=== PATIENT | female | born 1980 | race American Indian/Alaskan Native ===

== ENCOUNTER 2019-07-15 13:56 | Emergency (ER) | payer BC, OTHER ==
[2019-07-15] MEDS ORDERED: Albuterol/Ipratropium 3.0-0.5 MG/3 ML Neb Soln NEB ONE (14:14)
[2019-07-15] MEDS ORDERED: methylPREDNISolone Sodium Succinate 125 MG/2 ML SDV IVPUSH ONE (14:14)
[2019-07-15] MEDS ORDERED: Sodium Chloride 0.9% 10 ML Syringe FLUSH PRN (14:14)
[2019-07-15 14:46] LABS: ANION GAP 12.3; CHLORIDE,CL 104 mmol/L (101-111); SODIUM,NA 139 mmol/L (135-145)
[2019-07-15] MEDS ORDERED: Levofloxacin/Dextrose 5%-Water 750 MG in Premix Bag 1 BAG IV ONE (14:55)
--- NOTE | 2019-07-15 15:51 | EDM.PDOC ---
Scribed by Flaquita Proctor 07/15/19 1430 for Lyle Weaver MD ED HPI GENERAL MEDICAL PROBLEM - General Chief Complaint: Respiratory Problem Stated Complaint: SHORT OF BREATH/COUGH Time Seen by Provider: 07/15/19 14:22 Source of Information: Reports: Patient, RN, RN Notes Reviewed History Limitations: Reports: No Limitations - History of Present Illness INITIAL COMMENTS - FREE TEXT/NARRATIVE: Pt presents to ER with c/o persistent cough and wheezing for over one week. Pt was seen in clinic a few days ago, diagnosed with acute bronchitis and asthma flare up. She was treated from clinic with an Albuterol inhaler, Tessalon Perles , IM steroid shot, and Zithromax. She has completed 2 days of Zithromax. Pt admits to small amt. of sputum production today. Denies fever today, but has had some subjective low grade fevers. Onset: Gradual Duration: Constant Location: Reports: Chest Quality: Reports: Ache Severity: Moderate Improves with: Reports: None Worsens with: Reports: None Associated Symptoms: Reports: No Other Symptoms - Related Data Allergies Allergy/AdvReac Type Severity Reaction Status Date / Time codeine AdvReac Other Verified 07/15/19 14:22 sulfamethoxazole AdvReac Other Verified 07/15/19 14:22 [From Bactrim] trimethoprim [From Bactrim] AdvReac Other Verified 07/15/19 14:22 Home Meds: Home Meds Ibuprofen [Motrin] 800 mg PO ASDIRECTED PRN 09/24/13 [History] Acetaminophen [Tylenol] 650 mg PO ASDIRECTED PRN 02/06/18 [History] Albuterol Sulfate [Proair Hfa] 2 puff INH Q4H PRN 07/15/19 [History] Azithromycin 250 mg PO DAILY 07/15/19 [History] Benzonatate 100 mg PO TID PRN 07/15/19 [History] Past Medical History HEENT History: Reports: Impaired Vision Other HEENT History: wears glasses Cardiovascular History: Reports: None Respiratory History: Reports: Asthma 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 History: Reports: None 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 Musculoskeletal History: Reports: None Neurological History: Reports: None Psychiatric History: Reports: None Endocrine/Metabolic History: Reports: None Hematologic History: Reports: None Immunologic History: Reports: None Oncologic (Cancer) History: Reports: None Dermatologic History: Reports: None - Infectious Disease History Infectious Disease History: Reports: Chicken Pox - Past Surgical History Head Surgeries/Procedures: Reports: None GI Surgical History: Reports: Cholecystectomy Social & Family History - Family History Family Medical History: Noncontributory - Tobacco Use Smoking Status *Q: Never Smoker - Caffeine Use Caffeine Use: Reports: Coffee - Living Situation & Occupation Living situation: Reports: , with Family Occupation: Employed ED ROS GENERAL - Review of Systems Review Of Systems: Comprehensive ROS is negative, except as noted in HPI. ED EXAM, GENERAL - Physical Exam Exam: See Below Exam Limited By: No Limitations General Appearance: Alert, WD/WN, No Apparent Distress Eye Exam: Bilateral Eye: EOMI, Normal Inspection, PERRL Ears: Normal External Exam, Normal Canal, Hearing Grossly Normal, Normal TMs Nose: Normal Inspection, Normal Mucosa, No Blood Throat/Mouth: Normal Inspection, Normal Lips, Normal Teeth, Normal Gums, Normal Oropharynx, Normal Voice, No Airway Compromise Head: Atraumatic, Normocephalic Neck: Normal Inspection, Supple, Non-Tender, Full Range of Motion Respiratory/Chest: No Respiratory Distress, No Accessory Muscle Use, Chest Non- Tender, Wheezing. No: Crackles, Rales, Rhonchi, Stridor Cardiovascular: Normal Peripheral Pulses, Regular Rate, Rhythm, No Edema, No Gallop, No JVD, No Murmur, No Rub GI/Abdominal: Normal Bowel Sounds, Soft, Non-Tender (Female) Exam: Deferred Rectal (Female) Exam: Deferred Back Exam: Normal Inspection, Full Range of Motion, NT Extremities: Normal Inspection, Normal Range of Motion, Non-Tender, Normal Capillary Refill, No Pedal Edema Neurological: Alert, Oriented, CN II-XII Intact, Normal Cognition, Normal Gait, Normal Reflexes, No Motor/Sensory Deficits Psychiatric: Normal Affect, Normal Mood Skin Exam: Warm, Dry, Intact, Normal Color, No Rash Course - Vital Signs Last Recorded V/S: Last Vital Signs Temp 99.1 F 07/15/19 14:24 Pulse 90 07/15/19 14:24 Resp 20 07/15/19 14:24 BP 132/84 07/15/19 14:24 Pulse Ox 96 07/15/19 14:24 - Orders/Labs/Meds Orders: Active Orders 24 hr Category Date Time Status Peripheral IV Care [RC] . DIRECTED Care 07/15/19 14:14 Active RT Aerosol Therapy [RC] ASDIRECTED Care 07/15/19 14:14 Active Levofloxacin/Dextrose 5%-Water [Levaquin in D5W 750 MG/ Med 07/15/19 14:55 Active 150 ML] 750 mg Premix Bag 1 bag IV ONETIME Sodium Chloride 0.9% [Saline Flush] Med 07/15/19 14:14 Active 10 ml FLUSH ASDIRECTED PRN Peripheral IV Insertion Adult [OM.PC] Stat Oth 07/15/19 14:13 Ordered Medication Orders Levofloxacin/Dextrose 750 mg/ (Premix) 150 mls @ 100 mls/hr IV ONETIME ONE Stop: 07/15/19 16:24 Last Admin: 07/15/19 15:01 Dose: 100 mls/hr Sodium Chloride (Saline Flush) 10 ml FLUSH ASDIRECTED PRN PRN Reason: Keep Vein Open Last Admin: 07/15/19 14:38 Dose: 10 ml Labs: Laboratory Tests 07/15/19 07/15/19 07/15/19 Range/Units 14:22 14:22 14:22 WBC 17.0 H (5.0-10.0) 10^3/uL RBC 5.15 (4.2-5.4) 10^6/uL Hgb 13.6 (12.0-16.0) g/dL Hct 43.0 (37.0-47.0) % MCV 83.5 (80-100) fL MCH 26.4 L (27.0-34.0) pg MCHC 31.6 L (33.0-35.0) g/dL Plt Count 423 (150-450) 10^3/uL Neut % (Auto) 54.6 (42.2-75.2) % Lymph % (Auto) 28.4 (20.5-50.1) % [place] % (Auto) 6.1 (2-8) % Eos % (Auto) 10.4 H (1.0-3.0) % Baso % (Auto) 0.5 (0.0-1.0) % D-Dimer, Quantitative < 100 (0-400) ng/mL Sodium 139 (135-145) mmol/L Potassium 3.3 L (3.6-5.0) mmol/L Chloride 104 (101-111) mmol/L Carbon Dioxide 26.0 (21.0-31.0) mmol/L Anion Gap 12.3 BUN 13 (7-18) mg/dL Creatinine 0.8 (0.6-1.3) mg/dL Est Cr Clr Drug Dosing 92.72 mL/min Estimated GFR (MDRD) > 60 BUN/Creatinine Ratio 16.25 Glucose 99 (74-105) mg/dL Calcium 8.6 (8.4-10.2) mg/dl Total Bilirubin 0.7 (0.2-1.0) mg/dL AST 20 (10-42) IU/L ALT 41 (10-60) IU/L Alkaline Phosphatase 62 (42-121) IU/L Total Protein 7.2 (6.7-8.2) g/dl Albumin 3.9 (3.2-5.5) g/dl Globulin 3.3 Albumin/Globulin Ratio 1.18 HCG, Qual 07/15/19 Range/Units 14:22 WBC (5.0-10.0) 10^3/uL RBC (4.2-5.4) 10^6/uL Hgb (12.0-16.0) g/dL Hct (37.0-47.0) % MCV (80-100) fL MCH (27.0-34.0) pg MCHC (33.0-35.0) g/dL Plt Count (150-450) 10^3/uL Neut % (Auto) (42.2-75.2) % Lymph % (Auto) (20.5-50.1) % [place] % (Auto) (2-8) % Eos % (Auto) (1.0-3.0) % Baso % (Auto) (0.0-1.0) % D-Dimer, Quantitative (0-400) ng/mL Sodium (135-145) mmol/L Potassium (3.6-5.0) mmol/L Chloride (101-111) mmol/L Carbon Dioxide (21.0-31.0) mmol/L Anion Gap BUN (7-18) mg/dL Creatinine (0.6-1.3) mg/dL Est Cr Clr Drug Dosing mL/min Estimated GFR (MDRD) BUN/Creatinine Ratio Glucose (74-105) mg/dL Calcium (8.4-10.2) mg/dl Total Bilirubin (0.2-1.0) mg/dL AST (10-42) IU/L ALT (10-60) IU/L Alkaline Phosphatase (42-121) IU/L Total Protein (6.7-8.2) g/dl Albumin (3.2-5.5) g/dl Globulin Albumin/Globulin Ratio HCG, Qual Negative Meds: Medications Generic Name Dose Route Start Last Admin Trade Name Freq PRN Reason Stop Dose Admin Levofloxacin/Dextrose 750 mg/ 150 mls @ 100 mls/hr 07/15/19 14:55 07/15/19 15 :01 Premix IV 07/15/19 16:24 100 mls/hr ONETIME ONE Administration Sodium Chloride 10 ml 07/15/19 14:14 07/15/19 14:38 Saline Flush FLUSH 10 ml ASDIRECTED PRN Administration Keep Vein Open Discontinued Medications Generic Name Dose Route Start Last Admin Trade Name Freq PRN Reason Stop Dose Admin Albuterol/Ipratropium 3 ml 07/15/19 14:14 07/15/19 14:20 Duoneb 3.0-0.5 Mg/3 Ml NEB 07/15/19 14:15 3 ml ONETIME ONE Administration Methylprednisolone Sodium Succinate 125 mg 07/15/19 14:14 07/15/19 14:38 Solu-Medrol IVPUSH 07/15/19 14:15 125 mg ONETIME ONE Administration - Radiology Interpretation Free Text/Narrative:: [facility] Final Radiology Report Call: [phone] assistance Online chat: [email or web address] Name: YOBANI VAZQUEZ Age: 39Years F Date: 07/15/2019 SSN: -- : [id number] Study: XR CHEST 2 VIEWS FRONTAL & LAT Requesting Physician: LYLE WEAVER Images: 2 Addl Studies: Provided Clinical History: Contrast: Contrast Medium: Contrast Amount: Contrast Method: CONFIDENTIALITY STATEMENT This report is intended only for use by the referring physician, and only in accordance with law. If you received this in error, call [phone]. Page 1 of 1 PROCEDURE INFORMATION: Exam: XR Chest, 2 Views Exam date and time: 07/15/2019 2:52 PM Age: 39 years old Clinical indication: Cough and dyspnea and wheezing TECHNIQUE: Imaging protocol: XR of the chest Views: 2 views. COMPARISON: No relevant prior studies available. FINDINGS: Lungs: Atelectasis and/or early infiltrative changes noted within the right lung base. Pleural space: Unremarkable. No pleural effusion. No pneumothorax. Heart/Mediastinum: Unremarkable. No cardiomegaly. Diaphragm: There is nonspecific elevation of the right hemidiaphragm. Bones/joints: Unremarkable. IMPRESSION: Atelectasis and/or early infiltrative changes noted within the right lung base. Thank you for allowing us to participate in the care of your patient. Dictated and Authenticated by: Reece Heredia DO 07/15/2019 3:29 PM Central Time ([place] & [place]) Departure - Departure Time of Disposition: 15:45 Disposition: Home, Self-Care 01 Condition: Good, Fair Clinical Impression: Acute asthma Pneumonia Qualifiers: Pneumonia type: due to unspecified organism Laterality: right Lung location: lower lobe of lung Qualified Code(s): J18.9 - Pneumonia, unspecified organism - Discharge Information *PRESCRIPTION DRUG MONITORING PROGRAM REVIEWED*: No *COPY OF PRESCRIPTION DRUG MONITORING REPORT IN PATIENT [place]: No Instructions: Community-Acquired Pneumonia, Adult, [id number], Bronchospasm, Adult, Asthma, Adult, [id number] Forms: ED Department Discharge Additional Instructions: Rx: Levaquin 750mg Rx: Prednisone 20mg Continue Albuterol inhaler 2 puffs every 4 hours. Continue Tessalon as prescribed. Add over the counter Mucinex DM. Follow directions on label for dosing and precautions. Discontinue Zithromax. Follow up in clinic in 2 to 3 days. Return to ER if worse at any time. Sepsis Event Note - Focused Exam Vital Signs: Vital Signs Temp Pulse Resp BP Pulse Ox Pulse Ox 07/15/19 14:24 99.1 F 90 20 132/84 96 07/15/19 14:14 75 98 Date Exam was Performed: 07/15/19 Time Exam was Performed: 15:43 - My Orders Last 24 Hours: My Active Orders 07/15/19 14:13 Peripheral IV Insertion Adult [OM.PC] Stat 07/15/19 14:14 Peripheral IV Care [RC] . DIRECTED RT Aerosol Therapy [RC] ASDIRECTED Sodium Chloride 0.9% [Saline Flush] 10 ml FLUSH ASDIRECTED PRN 07/15/19 14:55 Levofloxacin/Dextrose 5%-Water [Levaquin in D5W 750 MG/150 ML] 750 mg Premix Bag 1 bag IV ONETIME - Assessment/Plan Last 24 Hours: My Active Orders 07/15/19 14:13 Peripheral IV Insertion Adult [OM.PC] Stat 07/15/19 14:14 Peripheral IV Care [RC] . DIRECTED RT Aerosol Therapy [RC] ASDIRECTED Sodium Chloride 0.9% [Saline Flush] 10 ml FLUSH ASDIRECTED PRN 07/15/19 14:55 Levofloxacin/Dextrose 5%-Water [Levaquin in D5W 750 MG/150 ML] 750 mg Premix Bag 1 bag IV ONETIME I have read and agree with the documentation that has been completed regarding this visit. By signing this record, I attest that the documentation was completed in my physical presence and is an accurate record of the encounter.
== END 2019-07-15 16:27 | disposition home or self-care (01) ==
LOC: DL.ED 13:56
DX: J45.909 Unspecified asthma, uncomplicated (principal); J18.9 Pneumonia, unspecified organism; Z88.5 Allergy status to narcotic agent; Z88.2 Allergy status to sulfonamides; Z88.1 Allergy status to other antibiotic agents; Z79.899 Other long term (current) drug therapy
CPT/HCPCS: 36415; 71046; 80053; 84703; 85025; 85379; 94640; 96365; 96375; 99285; J1956; J2930; J7620-GY

== ENCOUNTER 2019-08-07 21:22 | Observation (INO) | payer BC, OTHER ==
[2019-08-07] MEDS ORDERED: Albuterol/Ipratropium 3.0-0.5 MG/3 ML Neb Soln NEB ONE (23:28)
[2019-08-07 23:57] LABS: ANION GAP 12.3; CHLORIDE,CL 107 mmol/L (101-111); SODIUM,NA 139 mmol/L (135-145)
--- NOTE | 2019-08-08 00:11 | EDM.PDOC ---
ED HPI GENERAL MEDICAL PROBLEM - General Chief Complaint: Respiratory Problem Stated Complaint: SOB Time Seen by Provider: 08/07/19 22:40 Source of Information: Reports: Patient, Family, RN, RN Notes Reviewed History Limitations: Reports: Respiratory Distress - History of Present Illness INITIAL COMMENTS - FREE TEXT/NARRATIVE: patient presents to ER with complaint of shortness of breath. Patient states she had pneumonia a few months ago which was not diagnosed straight away. Patient states she has been having fever and chills, increasing shortness of breath. Patient was seen in the clinic on Wednesday and was started on Tamiflu, but was not tested for influenza. Patient was given a shot of steroid, and started on oral prednisone oral clarithromycin Tessalon Perles, and guaifenesin with codeine. patient admits to cough, shortness of breath, wheezing, fever, chills, nausea. Patient denies vomiting or diarrhea. Patient states she has been using her nebulizers at home. Patient states she feels her chest is heavy.this improves after a nebulizer, but very quickly goes back to the same. 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 Left Thoracic Pain Score (Numeric/FACES): 5 - Related Data Allergies Allergy/AdvReac Type Severity Reaction Status Date / Time codeine AdvReac Other Verified 07/15/19 14:22 sulfamethoxazole AdvReac Other Verified 07/15/19 14:22 [From Bactrim] trimethoprim [From Bactrim] AdvReac Other Verified 07/15/19 14:22 Home Meds: Home Meds Ibuprofen [Motrin] 800 mg PO ASDIRECTED PRN 09/24/13 [History] Acetaminophen [Tylenol] 650 mg PO ASDIRECTED PRN 02/06/18 [History] Albuterol Sulfate [Proair Hfa] 2 puff INH Q4H PRN 07/15/19 [History] Azithromycin 250 mg PO DAILY 07/15/19 [History] Benzonatate 100 mg PO TID PRN 07/15/19 [History] Past Medical History HEENT History: Reports: Impaired Vision, Other (See Below) Other HEENT History: wears glasses, macular degeneration Cardiovascular History: Reports: None Respiratory History: Reports: Asthma, Pneumonia, Recurrent Gastrointestinal History: Reports: None 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 History: Reports: None 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: Musculoskeletal History: Reports: None Neurological History: Reports: None Psychiatric History: Reports: None Endocrine/Metabolic History: Reports: None Hematologic History: Reports: None Immunologic History: Reports: None Oncologic (Cancer) History: Reports: None Dermatologic History: Reports: None - Infectious Disease History Infectious Disease History: Reports: Chicken Pox - Past Surgical History Head Surgeries/Procedures: Reports: None HEENT Surgical History: Reports: None Cardiovascular Surgical History: Reports: None Respiratory Surgical History: Reports: None GI Surgical History: Reports: Cholecystectomy Female Surgical History: Reports: Tubal Ligation Musculoskeletal Surgical History: Reports: None Social & Family History - Family History Family Medical History: Noncontributory - Tobacco Use Smoking Status *Q: Never Smoker Second Hand Smoke Exposure: No - Caffeine Use Caffeine Use: Reports: None - Recreational Drug Use Recreational Drug Use: No - Living Situation & Occupation Living situation: Reports: , with Family Occupation: Employed ED ROS GENERAL - Review of Systems Review Of Systems: Comprehensive ROS is negative, except as noted in HPI. ED EXAM, GENERAL - Physical Exam Exam: See Below Exam Limited By: Respiratory Distress General Appearance: Alert, WD/WN, Moderate Distress Eye Exam: Bilateral Eye: EOMI, Normal Inspection Ears: Normal External Exam, Hearing Grossly Normal Nose: Normal Inspection Throat/Mouth: Normal Inspection, Normal Lips, Normal Teeth, Normal Gums, Normal Oropharynx, Normal Voice, No Airway Compromise Head: Atraumatic, Normocephalic Neck: Normal Inspection, Supple, Non-Tender, Full Range of Motion Respiratory/Chest: Chest Non-Tender, Respiratory Distress, Decreased Breath Sounds, Wheezing, Accessory Muscle Use Cardiovascular: Normal Peripheral Pulses, Regular Rate, Rhythm, No Edema, No Gallop, No JVD, No Murmur, No Rub Peripheral Pulses: 2+: Radial (L), Radial (R) GI/Abdominal: Normal Bowel Sounds, Soft, Non-Tender, No Organomegaly, No Distention, No Abnormal Bruit, No Mass (Female) Exam: Deferred Rectal (Female) Exam: Deferred Back Exam: Normal Inspection, Full Range of Motion Extremities: Normal Inspection, Normal Range of Motion, Non-Tender, Normal Capillary Refill, No Pedal Edema Neurological: Alert, Oriented, CN II-XII Intact, Normal Cognition, Normal Gait, Normal Reflexes, No Motor/Sensory Deficits Psychiatric: Normal Mood, Anxious Skin Exam: Warm, Dry, Intact, Normal Color, No Rash Lymphatic: No Adenopathy Course - Vital Signs Last Recorded V/S: Last Vital Signs Temp 98.2 F 08/08/19 01:55 Pulse 114 H 08/08/19 01:58 Resp 27 H 08/08/19 01:58 BP 131/62 08/07/19 22:29 Pulse Ox 87 L 08/08/19 01:58 - Orders/Labs/Meds Orders: Active Orders 24 hr Category Date Time Status Peripheral IV Care [RC] . DIRECTED Care 08/07/19 23:30 Active Peripheral IV Care [RC] . DIRECTED Care 08/08/19 00:37 Active RT Aerosol Therapy [RC] ASDIRECTED Care 08/07/19 23:30 Active RT Aerosol Therapy [RC] ASDIRECTED Care 08/08/19 02:03 Active Chest 1V Frontal [CR] Stat Exams 08/07/19 23:29 Taken Sodium Chloride 0.9% [Saline Flush] Med 08/07/19 23:29 Active 10 ml FLUSH ASDIRECTED PRN Sodium Chloride 0.9% [Saline Flush] Med 08/08/19 00:37 Active 10 ml FLUSH ASDIRECTED PRN Peripheral IV Insertion Adult [OM.PC] Stat Oth 08/07/19 23:30 Ordered Peripheral IV Insertion Adult [OM.PC] Stat Oth 08/08/19 00:36 Ordered Medication Orders Sodium Chloride (Saline Flush) 10 ml FLUSH ASDIRECTED PRN PRN Reason: Keep Vein Open Last Admin: 08/08/19 00:40 Dose: 10 ml Sodium Chloride (Saline Flush) 10 ml FLUSH ASDIRECTED PRN PRN Reason: Keep Vein Open Last Admin: 08/08/19 00:45 Dose: 10 ml Labs: Laboratory Tests 08/07/19 08/07/19 Range/Units 23:36 23:36 WBC 14.5 H (5.0-10.0) 10^3/uL RBC 4.62 (4.2-5.4) 10^6/uL Hgb 12.3 (12.0-16.0) g/dL Hct 38.9 (37.0-47.0) % MCV 84.2 (80-100) fL MCH 26.6 L (27.0-34.0) pg MCHC 31.6 L (33.0-35.0) g/dL Plt Count 363 (150-450) 10^3/uL Neut % (Auto) 81.4 H (42.2-75.2) % Lymph % (Auto) 9.9 L (20.5-50.1) % [place] % (Auto) 3.7 (2-8) % Eos % (Auto) 4.7 H (1.0-3.0) % Baso % (Auto) 0.3 (0.0-1.0) % Sodium 139 (135-145) mmol/L Potassium 4.3 (3.6-5.0) mmol/L Chloride 107 (101-111) mmol/L Carbon Dioxide 24.0 (21.0-31.0) mmol/L Anion Gap 12.3 BUN 9 (7-18) mg/dL Creatinine 0.6 (0.6-1.3) mg/dL Est Cr Clr Drug Dosing 119.01 mL/min Estimated GFR (MDRD) > 60 BUN/Creatinine Ratio 15.00 Glucose 90 (74-105) mg/dL Calcium 8.3 L (8.4-10.2) mg/dl Total Bilirubin 0.7 (0.2-1.0) mg/dL AST 13 (10-42) IU/L ALT 17 (10-60) IU/L Alkaline Phosphatase 76 (42-121) IU/L Total Protein 7.1 (6.7-8.2) g/dl Albumin 3.7 (3.2-5.5) g/dl Globulin 3.4 Albumin/Globulin Ratio 1.09 Meds: Medications Generic Name Dose Route Start Last Admin Trade Name Freyared PRN Reason Stop Dose Admin Sodium Chloride 10 ml 08/07/19 23:29 08/08/19 00:40 Saline Flush FLUSH 10 ml ASDIRECTED PRN Administration Keep Vein Open Sodium Chloride 10 ml 08/08/19 00:37 08/08/19 00:45 Saline Flush FLUSH 10 ml ASDIRECTED PRN Administration Keep Vein Open Discontinued Medications Generic Name Dose Route Start Last Admin Trade Name Freq PRN Reason Stop Dose Admin Albuterol/Ipratropium 3 ml 08/07/19 23:28 08/07/19 23:30 Duoneb 3.0-0.5 Mg/3 Ml NEB 08/07/19 23:29 3 ml ONETIME ONE Administration Albuterol/Ipratropium 3 ml 08/08/19 02:03 08/08/19 02:08 Duoneb 3.0-0.5 Mg/3 Ml NEB 08/08/19 02:04 3 ml ONETIME ONE Administration Ceftriaxone Sodium 1 gm/ 50 mls @ 50 mls/hr 08/08/19 00:37 08/08/19 00:45 Sodium Chloride IV 08/08/19 01:36 50 mls/hr ONETIME ONE Administration Sodium Chloride 1,000 mls @ 999 mls/hr 08/08/19 00:36 08/08/19 00:45 Normal Saline IV 08/08/19 01:36 999 mls/hr .BOLUS ONE Administration Ketorolac Tromethamine 30 mg 08/08/19 01:52 08/08/19 01:57 Toradol IVPUSH 08/08/19 01:53 30 mg ONETIME ONE Administration - Radiology Interpretation Free Text/Narrative:: Chest xray: FINDINGS: Lungs: There is hazy increased density overlying the medial right lung base. The lungs otherwise appear clear. Pleural space: There are no pleural effusions. There is no pneumothorax. Heart/Mediastinum: The heart size is normal as are the mediastinal and hilar contours. The pulmonary vessels are normal. Bones/joints: No acute osseous pathology is identified. IMPRESSION: Hazy increased density overlying the medial right lung base could represent a small area of right middle lobe pneumonia in the appropriate clinical setting. The exam is otherwise normal. Thank you for allowing us to participate in the care of your patient. Dictated and Authenticated by: Sharon Burks MD 08/08/2019 12:06 AM Central Time ([place] & [place]) See rad report Departure - Departure Time of Disposition: 02:49 Disposition: Refer to Observation Condition: Fair Clinical Impression: Pneumonia Qualifiers: Pneumonia type: due to unspecified organism Laterality: right Lung location: lower lobe of lung Qualified Code(s): J18.9 - Pneumonia, unspecified organism - Discharge Information *PRESCRIPTION DRUG MONITORING PROGRAM REVIEWED*: No *COPY OF PRESCRIPTION DRUG MONITORING REPORT IN PATIENT [place]: No Forms: ED Department Discharge Sepsis Event Note - Evaluation Sepsis Screening Result: No Definite Risk - Focused Exam Vital Signs: Vital Signs Temp Temp Pulse Resp BP Pulse Ox 08/08/19 01:58 114 H 27 H 87 L 08/08/19 01:55 98.2 F 08/07/19 22:29 97.9 F 88 18 131/62 100 Date Exam was Performed: 08/08/19 Time Exam was Performed: 02:41 - My Orders Last 24 Hours: My Active Orders 08/07/19 23:29 Chest 1V Frontal [CR] Stat Sodium Chloride 0.9% [Saline Flush] 10 ml FLUSH ASDIRECTED PRN 08/07/19 23:30 Peripheral IV Care [RC] . DIRECTED RT Aerosol Therapy [RC] ASDIRECTED Peripheral IV Insertion Adult [OM.PC] Stat 08/08/19 00:36 Peripheral IV Insertion Adult [OM.PC] Stat 08/08/19 00:37 Peripheral IV Care [RC] . DIRECTED Sodium Chloride 0.9% [Saline Flush] 10 ml FLUSH ASDIRECTED PRN 08/08/19 02:03 RT Aerosol Therapy [RC] ASDIRECTED - Assessment/Plan Last 24 Hours: My Active Orders 08/07/19 23:29 Chest 1V Frontal [CR] Stat Sodium Chloride 0.9% [Saline Flush] 10 ml FLUSH ASDIRECTED PRN 08/07/19 23:30 Peripheral IV Care [RC] . DIRECTED RT Aerosol Therapy [RC] ASDIRECTED Peripheral IV Insertion Adult [OM.PC] Stat 08/08/19 00:36 Peripheral IV Insertion Adult [OM.PC] Stat 08/08/19 00:37 Peripheral IV Care [RC] . DIRECTED Sodium Chloride 0.9% [Saline Flush] 10 ml FLUSH ASDIRECTED PRN 08/08/19 02:03 RT Aerosol Therapy [RC] ASDIRECTED
[2019-08-08] MEDS ORDERED: Sodium Chloride 0.9% 1,000 ML IV ONE (00:36)
[2019-08-08] MEDS ORDERED: Sodium Chloride 0.9% 10 ML Syringe FLUSH PRN ×2 (00:37→03:36)
[2019-08-08] MEDS ORDERED: cefTRIAXone 1 GM in Sodium Chloride 0.9% 50 ML IV ONE (00:37)
[2019-08-08] MEDS: Sodium Chloride 0.9% 10 ML Syringe FLUSH PRN (00:40)
[2019-08-08] MEDS ORDERED: Ketorolac 30 MG/ML SDV IVPUSH ONE (01:52)
[2019-08-08] MEDS ORDERED: Albuterol/Ipratropium 3.0-0.5 MG/3 ML Neb Soln NEB ONE (02:03)
[2019-08-08] MEDS ORDERED: Albuterol 0.083% 2.5 MG/3 ML Neb Soln NEB ONE (03:23)
[2019-08-08] MEDS ORDERED: methylPREDNISolone Sodium Succinate 125 MG/2 ML SDV ONE (03:35)
[2019-08-08] MEDS ORDERED: Zolpidem 5 MG Tab PO PRN (03:36)
[2019-08-08] MEDS ORDERED: Docusate Sodium 100 MG Cap PO PRN (03:36)
[2019-08-08] MEDS ORDERED: Ondansetron 4 MG/2 ML SDV IVPUSH PRN (03:36)
[2019-08-08] MEDS ORDERED: Ondansetron 4 MG Tab.DIS PO PRN (03:36)
[2019-08-08] MEDS ORDERED: Benzonatate 100 MG Cap PO PRN (03:39)
[2019-08-08] MEDS ORDERED: Albuterol 6.7 GM Inhaler INH PRN (03:39)
--- NOTE | 2019-08-08 03:44 | PCM.HP ---
H&P History of Present Illness - General Date of Service: 08/08/19 Admit Problem/Dx: Admission Diagnosis/Problem Admission Diagnosis/Problem Pneumonia Source of Information: Patient History Limitations: Reports: No Limitations - History of Present Illness Initial Comments - Free Text/Narative: Becca Elmore is a 39-year-old female with no significant past medical history who presents with cough, shortness of breath and wheezing. Patient said she developed a sudden coughing fit along with shortness of breath 2 days ago. She had a temperature of 100 F at that time and took ibuprofen. The cough was nonproductive but continued onto yesterday. 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 She received a dose of IV steroid and was discharged on p.o. clarithromycin and prednisone. Patient's symptoms did not improve leading to her presenting to the ER today. She complained of chest tightness as well. Blood pressure was within normal limits. She was tachycardic at 114, tachypneic at 27 and hypoxic at 87%. She required oxygen by nasal cannula. Patient was afebrile. She had leukocytosis of 14.5. Influenza PCR test was negative. Chest x-ray suggested left lower lobe pneumonia. Patient reports having an episode of pneumonia/bronchitis about 3 weeks ago. She was told she had asthma and started on as needed albuterol. She followed up with her primary care doctor but has not yet had formal asthma testing. Sister has asthma. Left Thoracic Pain Score (Numeric/FACES): 4 - Related Data Allergies/Adverse Reactions: Allergies Allergy/AdvReac Type Severity Reaction Status Date / Time sulfamethoxazole AdvReac Other Verified 07/15/19 14:22 [From Bactrim] trimethoprim [From Bactrim] AdvReac Other Verified 07/15/19 14:22 Home Medications: Home Meds Ibuprofen [Motrin] 800 mg PO ASDIRECTED PRN 09/24/13 [History] Acetaminophen [Tylenol] 650 mg PO ASDIRECTED PRN 02/06/18 [History] Albuterol Sulfate [Proair Hfa] 2 puff INH Q4H PRN 07/15/19 [History] Benzonatate 200 mg PO TID PRN 07/15/19 [History] Clarithromycin [Biaxin] 500 mg PO BID 08/08/19 [History] Oseltamivir [Tamiflu] 75 mg PO DAILY 08/08/19 [History] guaiFENesin/Dextromethorphan [Guaifenesin-Dm 100-10 mg/5 ml] 5 ml PO Q4H PRN 10/22 [History] Past Medical History HEENT History: Reports: Impaired Vision, Other (See Below) Other HEENT History: wears glasses, macular degeneration Cardiovascular History: Reports: None Respiratory History: Reports: Asthma, Pneumonia, Recurrent Gastrointestinal History: Reports: None 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 History: Reports: 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: Musculoskeletal History: Reports: None Neurological History: Reports: None Psychiatric History: Reports: None Endocrine/Metabolic History: Reports: None Hematologic History: Reports: None Immunologic History: Reports: None Oncologic (Cancer) History: Reports: None Dermatologic History: Reports: None - Infectious Disease History Infectious Disease History: Reports: Chicken Pox - Past Surgical History Head Surgeries/Procedures: Reports: None HEENT Surgical History: Reports: None Cardiovascular Surgical History: Reports: None Respiratory Surgical History: Reports: None GI Surgical History: Reports: Cholecystectomy Female Surgical History: Reports: Tubal Ligation Musculoskeletal Surgical History: Reports: None Social & Family History - Family History Family Medical History: Noncontributory - Tobacco Use Smoking Status *Q: Never Smoker Second Hand Smoke Exposure: No - Caffeine Use Caffeine Use: Reports: None - Recreational Drug Use Recreational Drug Use: No - Living Situation & Occupation Living situation: Reports: , with Family Occupation: Employed H&P Review of Systems - Review of Systems: Review Of Systems: See Below General: Reports: Weakness HEENT: Reports: No Symptoms Pulmonary: Reports: Shortness of Breath, Wheezing, Cough. Denies: Sputum Cardiovascular: Reports: No Symptoms Gastrointestinal: Reports: No Symptoms 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: Reports: No Symptoms Musculoskeletal: Reports: No Symptoms Skin: Reports: No Symptoms Psychiatric: Reports: No Symptoms Neurological: Reports: No Symptoms Hematologic/Lymphatic: Reports: No Symptoms Immunologic: Reports: No Symptoms Exam - Exam Exam: See Below - Vital Signs Vital Signs: Last Vital Signs Temp 98.2 F 08/08/19 01:55 Pulse 114 H 08/08/19 01:58 Resp 27 H 08/08/19 01:58 BP 131/62 08/07/19 22:29 Pulse Ox 87 L 08/08/19 01:58 Weight: 179 lb 6.4 oz - Exam Quality Assessment: Supplemental Oxygen General: Alert, Oriented, Moderate Distress HEENT: PERRLA, Hearing Intact, Mucosa Moist & [place], Nares Patent, Normal Nasal Septum, Posterior Pharynx Clear, Conjunctiva Clear, EOMI, EACs Clear, TMs Clear Neck: Supple, Trachea Midline, 2 Lungs: Rhonchi, Wheezing Cardiovascular: Normal S1, Normal S2, Tachycardia GI/Abdominal Exam: Normal Bowel Sounds, Soft, Non-Tender, No Organomegaly, No Distention, No Abnormal Bruit, No Mass, Pelvis Stable (Female) Exam: Deferred Rectal (Female) Exam: Deferred Back Exam: Normal Inspection, Full Range of Motion, NT Extremities: Normal Inspection, Normal Range of Motion, Non-Tender, No Pedal Edema, Normal Capillary Refill Skin: Warm, Dry, Intact Neurological: Cranial Nerves Intact, Reflexes Equal Bilateral Neuro Extensive - Mental Status: Alert, Oriented x3, Normal Mood/Affect, Normal Cognition Neuro Extensive - Motor, Sensory, Reflexes: CN II-XII Intact, Normal Gait, Normal Reflexes Psychiatric: Alert, Normal Affect, Normal Mood - Patient Data Lab Results Last 24 hrs: Laboratory Results - last 24 hr 08/07/19 08/07/19 Range/Units 23:36 23:36 WBC 14.5 H (5.0-10.0) 10^3/uL RBC 4.62 (4.2-5.4) 10^6/uL Hgb 12.3 (12.0-16.0) g/dL Hct 38.9 (37.0-47.0) % MCV 84.2 (80-100) fL MCH 26.6 L (27.0-34.0) pg MCHC 31.6 L (33.0-35.0) g/dL Plt Count 363 (150-450) 10^3/uL Neut % (Auto) 81.4 H (42.2-75.2) % Lymph % (Auto) 9.9 L (20.5-50.1) % [place] % (Auto) 3.7 (2-8) % Eos % (Auto) 4.7 H (1.0-3.0) % Baso % (Auto) 0.3 (0.0-1.0) % Sodium 139 (135-145) mmol/L Potassium 4.3 (3.6-5.0) mmol/L Chloride 107 (101-111) mmol/L Carbon Dioxide 24.0 (21.0-31.0) mmol/L Anion Gap 12.3 BUN 9 (7-18) mg/dL Creatinine 0.6 (0.6-1.3) mg/dL Est Cr Clr Drug Dosing 119.01 mL/min Estimated GFR (MDRD) > 60 BUN/Creatinine Ratio 15.00 Glucose 90 (74-105) mg/dL Calcium 8.3 L (8.4-10.2) mg/dl Total Bilirubin 0.7 (0.2-1.0) mg/dL AST 13 (10-42) IU/L ALT 17 (10-60) IU/L Alkaline Phosphatase 76 (42-121) IU/L Total Protein 7.1 (6.7-8.2) g/dl Albumin 3.7 (3.2-5.5) g/dl Globulin 3.4 Albumin/Globulin Ratio 1.09 Result Diagrams: 08/07/19 23:36 08/07/19 23:36 Best Results Last 24 hrs: Microbiology 08/08/19 02:10 Influenza Type A Antigen Screen - Final Nasal, Unspecified NEGATIVE INFLUENZA A VIRUS AG REFERENCE RANGE: NEGATIVE Influenza Type B Antigen Screen - Final NEGATIVE INFLUENZA B VIRUS AG REFERENCE RANGE: NEGATIVE Problem List Initiated/Reviewed/Updated: Yes Orders Last 24hrs: Active Orders 24 hr Category Date Time Status Admission Diagnosis [ADT] Stat ADT 08/08/19 02:41 Ordered Admission Status [Patient Status] [ADT] Routine ADT 08/08/19 02:41 Active Patient Status [ADT] Routine ADT 08/08/19 03:36 Ordered Oxygen Therapy [RC] PRN Care 08/08/19 03:36 Ordered Peripheral IV Care [RC] . DIRECTED Care 08/07/19 23:30 Active Peripheral IV Care [RC] . DIRECTED Care 08/08/19 00:37 Active RT Aerosol Therapy [RC] ASDIRECTED Care 08/07/19 23:30 Active RT Aerosol Therapy [RC] ASDIRECTED Care 08/08/19 02:03 Active RT Aerosol Therapy [RC] ASDIRECTED Care 08/08/19 03:23 Active RT Aerosol Therapy [RC] ASDIRECTED Care 08/08/19 03:38 Ordered Up ad Petra [RC] ASDIRECTED Care 08/08/19 03:36 Ordered VTE/DVT Education [RC] PER UNIT ROUTINE Care 08/08/19 03:36 Ordered Vital Signs [RC] Q4H Care 08/08/19 03:36 Ordered Regular Diet [DIET] Diet 08/08/19 Breakfast Ordered Chest 1V Frontal [CR] Stat Exams 08/07/19 23:29 Taken BASIC METABOLIC PANEL,BMP [CHEM] AM Lab 08/08/19 05:11 Ordered CBC WITH AUTO DIFF [HEME] AM Lab 08/08/19 05:11 Ordered CULTURE SPUTUM + SMEAR [RM] Routine Lab 08/08/19 03:43 Ordered Acetaminophen [Tylenol] Med 08/08/19 03:36 Ordered 650 mg PO Q4H PRN Albuterol [Proventil HFA] Med 08/08/19 03:39 Ordered 2 puff INH Q4H PRN Albuterol [Proventil Neb Soln] Med 08/08/19 03:23 Once 2.5 mg NEB ONETIME ONE Albuterol/Ipratropium [DuoNeb 3.0-0.5 MG/3 ML] Med 08/08/19 03:45 Ordered 3 ml NEB Q4H Azithromycin [Zithromax] 500 mg Med 08/08/19 03:45 Ordered Sodium Chloride 0.9% [Normal Saline (AdvBag)] 250 ml IV Q24H Benzonatate [Tessalon Perles] Med 08/08/19 03:39 Ordered 200 mg PO TID PRN Docusate Sodium [Colace] Med 08/08/19 03:36 Ordered 100 mg PO BID PRN Enoxaparin [Lovenox] Med 08/08/19 09:00 Ordered 30 mg SUBCUT DAILY Ondansetron [Zofran ODT] Med 08/08/19 03:36 Ordered 4 mg PO Q4H PRN Ondansetron [Zofran] Med 08/08/19 03:36 Ordered 4 mg IVPUSH Q4H PRN Oseltamivir [Tamiflu] Med 08/08/19 09:00 Ordered 75 mg PO DAILY Sodium Chloride 0.9% [Saline Flush] Med 08/07/19 23:29 Active 10 ml FLUSH ASDIRECTED PRN Sodium Chloride 0.9% [Saline Flush] Med 08/08/19 00:37 Active 10 ml FLUSH ASDIRECTED PRN Sodium Chloride 0.9% [Saline Flush] Med 08/08/19 03:36 Ordered 10 ml FLUSH ASDIRECTED PRN Zolpidem [Ambien] Med 08/08/19 03:36 Ordered 5 mg PO BEDTIME PRN cefTRIAXone [Rocephin] 1 gm Med 08/08/19 09:00 Ordered Sodium Chloride 0.9% [Normal Saline] 50 ml IV Q12HR guaiFENesin/Dextromethorphan [Guaifenesin-Dm 100-10 mg/ Med 08/08/19 03:39 Ordered 5 ml] 5 ml PO Q4H PRN methylPREDNISolone Sod Succ [Solu-MEDROL] Med 08/08/19 03:45 Ordered 125 mg IVPUSH Q6H oxyCODONE Med 08/08/19 03:36 Ordered 5 mg PO Q4H PRN Peripheral IV Insertion Adult [OM.PC] Stat Oth 08/07/19 23:30 Ordered Peripheral IV Insertion Adult [OM.PC] Stat Oth 08/08/19 00:36 Ordered Saline Lock Insert [OM.PC] Routine Oth 08/08/19 03:36 Ordered Resuscitation Status Routine Resus Stat 08/08/19 03:36 Ordered Medication Orders Acetaminophen (Tylenol) 650 mg PO Q4H PRN PRN Reason: Pain (Mild 1-3)/fever Albuterol (Proventil Neb Soln) 2.5 mg NEB ONETIME ONE Stop: 08/08/19 03:24 Albuterol (Proventil Hfa) gm INH Q4H PRN PRN Reason: Shortness of Breath Albuterol/Ipratropium (Duoneb 3.0-0.5 Mg/3 Ml) 3 ml NEB Q4H [facility]OO[facility] Benzonatate (Tessalon Perles) 200 mg PO TID PRN PRN Reason: Cough Docusate Sodium (Colace) 100 mg PO BID PRN PRN Reason: Constipation Enoxaparin Sodium (Lovenox) 30 mg SUBCUT DAILY [facility] Azithromycin 500 mg/ Sodium (Chloride) 250 mls @ 250 mls/hr IV Q24H [facility]OO[facility] Ceftriaxone Sodium 1 gm/ (Sodium Chloride) 50 mls @ 50 mls/hr IV Q12HR [facility] Methylprednisolone Sodium Succinate (Solu-Medrol) 125 mg IVPUSH Q6H [facility] Non-Formulary Medication (Guaifenesin/Dextromethorphan [Guaifenesin-Dm 100-10 Mg /5 Ml]) 5 ml PO Q4H PRN PRN Reason: Cough Ondansetron HCl (Zofran Odt) 4 mg PO Q4H PRN PRN Reason: nausea, able to take PO Ondansetron HCl (Zofran) 4 mg IVPUSH Q4H PRN PRN Reason: Nausea/Vomiting Oseltamivir Phosphate (Tamiflu) 75 mg PO DAILY [facility] Oxycodone HCl (Oxycodone) 5 mg PO Q4H PRN PRN Reason: Pain (moderate 4-6) Sodium Chloride (Saline Flush) 10 ml FLUSH ASDIRECTED PRN PRN Reason: Keep Vein Open Last Admin: 08/08/19 00:40 Dose: 10 ml Sodium Chloride (Saline Flush) 10 ml FLUSH ASDIRECTED PRN PRN Reason: Keep Vein Open Last Admin: 08/08/19 00:45 Dose: 10 ml Sodium Chloride (Saline Flush) 10 ml FLUSH ASDIRECTED PRN PRN Reason: Keep Vein Open Zolpidem Tartrate (Ambien) 5 mg PO BEDTIME PRN PRN Reason: Sleep Assessment/Plan Comment:: Acute hypoxic respiratory failure Committee acquired pneumonia Probable acute asthma exacerbation Patient presented with cough, shortness of breath, chest tightness, wheezing. Reported history of chills and a temperature of 100 F. Has tachycardia of 114, tachypnea of 27 and hypoxia of 87%. She is requiring oxygen by nasal cannula. Has leukocytosis of 14.5. Influenza PCR negative. Checks x-ray showed a hazy increased density overlying medial right lung base. -Start ceftriaxone and azithromycin -Obtain sputum culture and Gram stain -Obtain blood culture if spikes fever -O2 PRN to keep sats above 90% -IV methylprednisolone 125 mg 4 times daily -Scheduled DuoNeb 4 times daily -Albuterol every 2 hours as needed -Recommend asthma testing when stable in near future
[2019-08-08] MEDS: methylPREDNISolone Sodium Succinate 125 MG/2 ML SDV IVPUSH SCH ×4 (03:54→22:15)
[2019-08-08] MEDS: Azithromycin 500 MG in Sodium Chloride 0.9% 250 ML IV SCH (04:14)
[2019-08-08] MEDS: guaiFENesin/Dextromethorphan 100-10 MG/5 ML Soln 5 ML Cup PO PRN ×2 (04:17→08:32)
[2019-08-08] MEDS: Albuterol/Ipratropium 3.0-0.5 MG/3 ML Neb Soln NEB SCH ×5 (04:38→20:57)
[2019-08-08] MEDS: Albuterol 0.083% 2.5 MG/3 ML Neb Soln NEB PRN ×2 (06:32→10:39)
[2019-08-08 07:04] LABS: ANION GAP 11.1; CHLORIDE,CL 109 mmol/L (101-111); SODIUM,NA 138 mmol/L (135-145)
[2019-08-08] MEDS: Acetaminophen 325 MG Tab PO PRN ×3 (08:32→21:10)
[2019-08-08] MEDS: Enoxaparin 40 MG/0.4 ML Syringe SUBCUT SCH (08:34)
[2019-08-08] MEDS ORDERED: Oseltamivir 75 MG Cap PO SCH (09:00)
[2019-08-08] MEDS: cefTRIAXone 1 GM in Sodium Chloride 0.9% 50 ML IV SCH ×2 (09:06→20:58)
[2019-08-08] MEDS ORDERED: BENZONATATE 100 MG PO PRN (09:15)
[2019-08-08] MEDS: Ibuprofen 400 MG Tab PO PRN ×2 (11:18→16:02)
[2019-08-08] MEDS: GUAIFENESIN 100 MG/5 ML PO PRN (13:11)
[2019-08-08] MEDS: BENZONATATE 200 MG PO PRN (16:03)
[2019-08-09] MEDS: Albuterol/Ipratropium 3.0-0.5 MG/3 ML Neb Soln NEB SCH ×7 (00:10→23:29)
[2019-08-09] MEDS: oxyCODONE 5 MG Tab PO PRN ×2 (00:11→22:31)
[2019-08-09] MEDS: methylPREDNISolone Sodium Succinate 125 MG/2 ML SDV IVPUSH SCH (04:23)
[2019-08-09] MEDS: Azithromycin 500 MG in Sodium Chloride 0.9% 250 ML IV SCH (04:25)
[2019-08-09] MEDS: Acetaminophen 325 MG Tab PO PRN ×2 (07:30→20:23)
[2019-08-09] MEDS: Enoxaparin 40 MG/0.4 ML Syringe SUBCUT SCH (08:55)
[2019-08-09] MEDS: cefTRIAXone 1 GM in Sodium Chloride 0.9% 50 ML IV SCH ×2 (08:55→22:21)
[2019-08-09] MEDS: Sodium Chloride 0.9% 10 ML Syringe FLUSH PRN (08:56)
[2019-08-09] MEDS: BENZONATATE 200 MG PO PRN ×2 (09:00→20:24)
[2019-08-09] MEDS: GUAIFENESIN 100 MG/5 ML PO PRN ×2 (09:00→20:24)
--- NOTE | 2019-08-09 09:46 | PCM.PN ---
- General Info Date of Service: 08/09/19 Admission Dx/Problem (Free Text): Admission Diagnosis/Problem Admission Diagnosis/Problem Pneumonia Subjective Update: Patient said that her breathing was slightly better yesterday, but she is little more short of breath today. She denied any nausea, vomiting,. She formally diagnosed with asthma, but was given inhalers at [facility]. - Review of Systems General: Reports: No Symptoms Pulmonary: Reports: Shortness of Breath Cardiovascular: Reports: No Symptoms Gastrointestinal: Reports: No Symptoms Neurological: Reports: No Symptoms - Patient Data Vitals - Most Recent: Last Vital Signs Temp 37.2 C 08/09/19 08:00 Pulse 93 08/09/19 08:25 Resp 26 H 08/09/19 08:00 BP 125/76 08/09/19 08:00 Pulse Ox 99 08/09/19 08:25 Weight - Most Recent: 81.374 kg I&O - Last 24 Hours: Intake & Output 08/08/19 08/09/19 08/09/19 22:59 06:59 14:59 Intake Total 1000 651 Output Total 2000 900 Balance -1000 -249 Best Results Last 24 Hours: Microbiology 08/08/19 13:20 Gram Stain - Final Sputum - Expectorated Sputum Culture - Preliminary Normal [place] [facility] Orders - Current: Current Medications Acetaminophen (Tylenol) 650 mg PO Q4H PRN PRN Reason: Pain (Mild 1-3)/fever Last Admin: 08/09/19 07:30 Dose: 650 mg Albuterol (Proventil Neb Soln) 2.5 mg NEB Q2H PRN PRN Reason: Wheezing Last Admin: 08/08/19 10:39 Dose: 2.5 mg Albuterol/Ipratropium (Duoneb 3.0-0.5 Mg/3 Ml) 3 ml NEB Q4H POOJA Last Admin: 08/09/19 08:25 Dose: 3 ml Docusate Sodium (Colace) 100 mg PO BID PRN PRN Reason: Constipation Enoxaparin Sodium (Lovenox) 40 mg SUBCUT DAILY [facility] Last Admin: 08/09/19 08:55 Dose: 40 mg Guaifenesin (Robitussin) 200 mg PO Q4H PRN PRN Reason: Cough Last Admin: 08/09/19 09:00 Dose: 200 mg Azithromycin 500 mg/ Sodium (Chloride) 250 mls @ 250 mls/hr IV Q24H [facility] Last Admin: 08/09/19 04:25 Dose: 250 mls/hr Ceftriaxone Sodium 1 gm/ (Sodium Chloride) 50 mls @ 50 mls/hr IV Q12HR [facility] Last Admin: 08/09/19 08:55 Dose: 50 mls/hr Ibuprofen (Motrin) 400 mg PO Q4H PRN PRN Reason: Headache/Pain Last Admin: 08/08/19 16:02 Dose: 400 mg Benzonatate 200 Mg (Cap Pt Own Med ) 0 each PO TID PRN PRN Reason: Cough Last Admin: 08/09/19 09:00 Dose: 1 each Ondansetron HCl (Zofran Odt) 4 mg PO Q4H PRN PRN Reason: nausea, able to take PO Ondansetron HCl (Zofran) 4 mg IVPUSH Q4H PRN PRN Reason: Nausea/Vomiting Oxycodone HCl (Oxycodone) 5 mg PO Q4H PRN PRN Reason: Pain (moderate 4-6) Last Admin: 08/09/19 00:11 Dose: 5 mg Prednisone (Prednisone) 40 mg PO WITHBREAKFAST [facility] Stop: 08/12/19 23:59 Sodium Chloride (Saline Flush) 10 ml FLUSH ASDIRECTED PRN PRN Reason: Keep Vein Open Last Admin: 08/09/19 08:56 Dose: 10 ml Sodium Chloride (Saline Flush) 10 ml FLUSH ASDIRECTED PRN PRN Reason: Keep Vein Open Last Admin: 08/08/19 00:45 Dose: 10 ml Sodium Chloride (Saline Flush) 10 ml FLUSH ASDIRECTED PRN PRN Reason: Keep Vein Open Zolpidem Tartrate (Ambien) 5 mg PO BEDTIME PRN PRN Reason: Sleep Discontinued Medications Albuterol (Proventil Neb Soln) 2.5 mg NEB ONETIME ONE Stop: 08/08/19 03:24 Last Admin: 08/08/19 03:53 Dose: 2.5 mg Albuterol (Proventil Hfa) 0 gm INH Q4H PRN PRN Reason: Shortness of Breath Albuterol/Ipratropium (Duoneb 3.0-0.5 Mg/3 Ml) 3 ml NEB ONETIME ONE Stop: 08/07/19 23:29 Last Admin: 08/07/19 23:30 Dose: 3 ml Albuterol/Ipratropium (Duoneb 3.0-0.5 Mg/3 Ml) 3 ml NEB ONETIME ONE Stop: 08/08/19 02:04 Last Admin: 08/08/19 02:08 Dose: 3 ml Benzonatate (Tessalon Perles) 200 mg PO TID PRN PRN Reason: Cough Last Admin: 08/08/19 08:32 Dose: 200 mg Benzonatate (Tessalon Perles) 200 mg PO TID PRN PRN Reason: Cough Guaifenesin/Phenylephrine HCl (Robitussin Dm) 5 ml PO Q4H PRN PRN Reason: Cough Last Admin: 08/08/19 08:32 Dose: 5 ml Ceftriaxone Sodium 1 gm/ (Sodium Chloride) 50 mls @ 50 mls/hr IV ONETIME ONE Stop: 08/08/19 01:36 Last Admin: 08/08/19 00:45 Dose: 50 mls/hr Sodium Chloride (Normal Saline) 1,000 mls @ 999 mls/hr IV .BOLUS ONE Stop: 08/08/19 01:36 Last Admin: 08/08/19 00:45 Dose: 999 mls/hr Ketorolac Tromethamine (Toradol) 30 mg IVPUSH ONETIME ONE Stop: 08/08/19 01:53 Last Admin: 08/08/19 01:57 Dose: 30 mg Methylprednisolone Sodium Succinate (Solu-Medrol) Confirm Administered Dose 125 mg .ROUTE .STK-MED ONE Stop: 08/08/19 03:36 Last Admin: 08/08/19 03:54 Dose: Not Given Methylprednisolone Sodium Succinate (Solu-Medrol) 125 mg IVPUSH Q6H POO[facility] Last Admin: 08/09/19 04:23 Dose: 125 mg Oseltamivir Phosphate (Tamiflu) 75 mg PO DAILY POO[facility] - Exam General: Alert, Oriented Lungs: Normal Respiratory Effort, Wheezing Cardiovascular: Regular Rate, Regular Rhythm GI/Abdominal Exam: Normal Bowel Sounds, Soft, Non-Tender Extremities: Normal Inspection, No Pedal Edema Skin: Warm, Dry, Intact Sepsis Event Note - Evaluation Sepsis Screening Result: No Definite Risk - Focused Exam Vital Signs: Vital Signs Temp Temp Pulse Resp BP Pulse Ox Pulse Ox 08/09/19 08:25 93 99 02/05/20 08:00 37.2 C 88 26 H 125/76 97 08/09/19 04:00 36.4 C 72 22 H 106/54 L 96 08/09/19 03:36 96 Date Exam was Performed: 08/09/19 Time Exam was Performed: 10:53 - Problem List Review Problem List Initiated/Reviewed/Updated: Yes - My Orders Last 24 Hours: My Active Orders 08/09/19 08:00 predniSONE 40 mg PO WITHBREAKFAST - Plan Plan:: Acute hypoxic respiratory failure Committee acquired pneumonia Probable acute asthma exacerbation Patient presented with cough, shortness of breath, chest tightness, wheezing. Reported history of chills and a temperature of 100 F. Has tachycardia of 114, tachypnea of 27 and hypoxia of 87%. She is requiring oxygen by nasal cannula. Has leukocytosis of 14.5. Influenza PCR negative. Checks x-ray showed a hazy increased density overlying medial right lung base. -Continue current antibiotics -Switch IV methylprednisone to oral prednisone daily 40 -Continue breathing treatment
[2019-08-09] MEDS: predniSONE 20 MG Tab PO SCH (10:28)
[2019-08-09] MEDS: Ibuprofen 400 MG Tab PO PRN (12:05)
[2019-08-10] MEDS: Albuterol/Ipratropium 3.0-0.5 MG/3 ML Neb Soln NEB SCH ×3 (04:17→11:45)
[2019-08-10] MEDS: Azithromycin 500 MG in Sodium Chloride 0.9% 250 ML IV SCH (04:18)
[2019-08-10] MEDS: Ibuprofen 400 MG Tab PO PRN (04:32)
[2019-08-10] MEDS: cefTRIAXone 1 GM in Sodium Chloride 0.9% 50 ML IV SCH (08:54)
[2019-08-10] MEDS: Enoxaparin 40 MG/0.4 ML Syringe SUBCUT SCH (08:54)
[2019-08-10] MEDS: predniSONE 20 MG Tab PO SCH (08:55)
[2019-08-10] MEDS: GUAIFENESIN 100 MG/5 ML PO PRN (08:57)
[2019-08-10] MEDS: Sodium Chloride 0.9% 10 ML Syringe FLUSH PRN (08:58)
[2019-08-10] MEDS: Acetaminophen 325 MG Tab PO PRN (09:06)
--- NOTE | 2019-08-10 11:13 | PCM.DCSUM1 ---
Discharge Summary - Hospital Course Free Text/Narrative:: 39-year-old female with no significant past medical history who presents with cough, shortness of breath and wheezing. Patient said she developed a sudden coughing fit along with shortness of breath 2 days ago. She was treated for possible pneumonia although chest x-ray was negative. Patient was likely having asthma exacerbation. She improved significantly with treatment. She was discharged home in stable condition. She will need follow-up with PCP, and formal evaluation of PFTs. - Discharge Data Discharge Date: 08/10/19 Discharge Disposition: Home, Self-Care 01 Condition: Fair - Referral to Home Health Primary Care Physician: PCP Unobtainable - Discharge Plan *PRESCRIPTION DRUG MONITORING PROGRAM REVIEWED*: No *COPY OF PRESCRIPTION DRUG MONITORING REPORT IN PATIENT [place]: No Prescriptions/Med Rec: Albuterol [Proventil Neb Soln] 2.5 mg NEB Q2H PRN #30 neb PRN Reason: Wheezing Azithromycin [Zithromax] 250 mg PO DAILY #3 tab predniSONE 40 mg PO WITHBREAKFAST #4 tablet Home Medications: Home Meds Acetaminophen [Tylenol] 650 mg PO ASDIRECTED PRN 02/06/18 [History] Albuterol Sulfate [Proair Hfa] 2 puff INH Q4H PRN 07/15/19 [History] Benzonatate 200 mg PO TID PRN 07/15/19 [History] guaiFENesin/Dextromethorphan [Guaifenesin-Dm 100-10 mg/5 ml] 5 ml PO Q4H PRN 10/22 [History] Albuterol [Proventil Neb Soln] 2.5 mg NEB Q2H PRN #30 neb 08/10/19 [Rx] Azithromycin [Zithromax] 250 mg PO DAILY #3 tab 08/10/19 [Rx] predniSONE 40 mg PO WITHBREAKFAST #4 tablet 08/10/19 [Rx] Patient Handouts: Azithromycin tablets, Albuterol; Ipratropium inhalation aerosol, Prednisone tablets, Community-Acquired Pneumonia, Adult, [id number] Referrals: PCP,Unobtain [Primary Care Provider] - - Discharge Summary/Plan Comment DC Time >30 min.: Yes - General Info Date of Service: 08/10/19 Admission Dx/Problem (Free Text: Admission Diagnosis/Problem Admission Diagnosis/Problem Asthma exacerbation Subjective Update: Significantly improved - Patient Data Vitals - Most Recent: Last Vital Signs Temp 37.2 C 08/10/19 07:29 Pulse 82 08/10/19 07:43 Resp 22 H 08/10/19 07:29 BP 123/70 08/10/19 07:29 Pulse Ox 97 08/10/19 07:29 Weight - Most Recent: 81.374 kg I&O - Last 24 hours: Intake & Output 08/09/19 08/10/19 08/10/19 22:59 06:59 14:59 Intake Total 1999 836 Balance 1999 836 KATHY Results - Last 24 hrs: Microbiology 08/08/19 13:20 Gram Stain - Final Sputum - Expectorated Sputum Culture - Preliminary Normal [facility] Med Orders - Current: Current Medications Acetaminophen (Tylenol) 650 mg PO Q4H PRN PRN Reason: Pain (Mild 1-3)/fever Last Admin: 08/10/19 09:06 Dose: 650 mg Albuterol (Proventil Neb Soln) 2.5 mg NEB Q2H PRN PRN Reason: Wheezing Last Admin: 08/08/19 10:39 Dose: 2.5 mg Albuterol/Ipratropium (Duoneb 3.0-0.5 Mg/3 Ml) 3 ml NEB Q4H POOJA Last Admin: 08/10/19 07:43 Dose: 3 ml Docusate Sodium (Colace) 100 mg PO BID PRN PRN Reason: Constipation Enoxaparin Sodium (Lovenox) 40 mg SUBCUT DAILY [facility] Last Admin: 08/10/19 08:54 Dose: 40 mg Guaifenesin (Robitussin) 200 mg PO Q4H PRN PRN Reason: Cough Last Admin: 08/10/19 08:57 Dose: 200 mg Azithromycin 500 mg/ Sodium (Chloride) 250 mls @ 250 mls/hr IV Q24H [facility] Last Admin: 08/10/19 04:18 Dose: 250 mls/hr Ceftriaxone Sodium 1 gm/ (Sodium Chloride) 50 mls @ 50 mls/hr IV Q12HR [facility] Last Admin: 08/10/19 08:54 Dose: 50 mls/hr Ibuprofen (Motrin) 400 mg PO Q4H PRN PRN Reason: Headache/Pain Last Admin: 08/10/19 04:32 Dose: 400 mg Benzonatate 200 Mg (Cap Pt Own Med ) 0 each PO TID PRN PRN Reason: Cough Last Admin: 08/09/19 20:24 Dose: 1 each Ondansetron HCl (Zofran Odt) 4 mg PO Q4H PRN PRN Reason: nausea, able to take PO Ondansetron HCl (Zofran) 4 mg IVPUSH Q4H PRN PRN Reason: Nausea/Vomiting Oxycodone HCl (Oxycodone) 5 mg PO Q4H PRN PRN Reason: Pain (moderate 4-6) Last Admin: 08/09/19 22:31 Dose: 5 mg Prednisone (Prednisone) 40 mg PO WITHBREAKFAST POOJA Stop: 08/12/19 10:16 Last Admin: 08/10/19 08:55 Dose: 40 mg Sodium Chloride (Saline Flush) 10 ml FLUSH ASDIRECTED PRN PRN Reason: Keep Vein Open Last Admin: 08/10/19 08:58 Dose: 10 ml Sodium Chloride (Saline Flush) 10 ml FLUSH ASDIRECTED PRN PRN Reason: Keep Vein Open Last Admin: 08/08/19 00:45 Dose: 10 ml Sodium Chloride (Saline Flush) 10 ml FLUSH ASDIRECTED PRN PRN Reason: Keep Vein Open Zolpidem Tartrate (Ambien) 5 mg PO BEDTIME PRN PRN Reason: Sleep Discontinued Medications Albuterol (Proventil Neb Soln) 2.5 mg NEB ONETIME ONE Stop: 08/08/19 03:24 Last Admin: 08/08/19 03:53 Dose: 2.5 mg Albuterol (Proventil Hfa) 0 gm INH Q4H PRN PRN Reason: Shortness of Breath Albuterol/Ipratropium (Duoneb 3.0-0.5 Mg/3 Ml) 3 ml NEB ONETIME ONE Stop: 08/07/19 23:29 Last Admin: 08/07/19 23:30 Dose: 3 ml Albuterol/Ipratropium (Duoneb 3.0-0.5 Mg/3 Ml) 3 ml NEB ONETIME ONE Stop: 08/08/19 02:04 Last Admin: 08/08/19 02:08 Dose: 3 ml Benzonatate (Tessalon Perles) 200 mg PO TID PRN PRN Reason: Cough Last Admin: 08/08/19 08:32 Dose: 200 mg Benzonatate (Tessalon Perles) 200 mg PO TID PRN PRN Reason: Cough Guaifenesin/Phenylephrine HCl (Robitussin Dm) 5 ml PO Q4H PRN PRN Reason: Cough Last Admin: 08/08/19 08:32 Dose: 5 ml Ceftriaxone Sodium 1 gm/ (Sodium Chloride) 50 mls @ 50 mls/hr IV ONETIME ONE Stop: 08/08/19 01:36 Last Admin: 08/08/19 00:45 Dose: 50 mls/hr Sodium Chloride (Normal Saline) 1,000 mls @ 999 mls/hr IV .BOLUS ONE Stop: 08/08/19 01:36 Last Admin: 08/08/19 00:45 Dose: 999 mls/hr Ketorolac Tromethamine (Toradol) 30 mg IVPUSH ONETIME ONE Stop: 08/08/19 01:53 Last Admin: 08/08/19 01:57 Dose: 30 mg Methylprednisolone Sodium Succinate (Solu-Medrol) Confirm Administered Dose 125 mg .ROUTE .STK-MED ONE Stop: 08/08/19 03:36 Last Admin: 08/08/19 03:54 Dose: Not Given Methylprednisolone Sodium Succinate (Solu-Medrol) 125 mg IVPUSH Q6H POOJA Last Admin: 08/09/19 04:23 Dose: 125 mg Oseltamivir Phosphate (Tamiflu) 75 mg PO DAILY POOJA - Exam General: Reports: Alert, Oriented Lungs: Reports: Clear to Auscultation, Normal Respiratory Effort Cardiovascular: Reports: Regular Rate, Regular Rhythm GI/Abdominal Exam: Normal Bowel Sounds, Soft, Non-Tender, No Organomegaly, No Distention Skin: Reports: Warm, Dry, Intact Neurological: Reports: No New Focal Deficit Psy/Mental Status: Reports: Alert, Normal Affect, Normal Mood
== END 2019-08-10 12:05 | disposition home or self-care (01) ==
LOC: DL.ED 21:22 → DL.MS 08-08 02:41 → DL.ED 08-08 03:02 → OBSVTOIN 08-08 10:25 → INTOOBSV 08-08 10:25
PROVIDERS: ADMIT Internal Medicine; ATTEND Internal Medicine
DX: J18.9 Pneumonia, unspecified organism (principal); J96.01 Acute respiratory failure with hypoxia; J45.909 Unspecified asthma, uncomplicated; Z88.1 Allergy status to other antibiotic agents; Z88.2 Allergy status to sulfonamides; Z88.5 Allergy status to narcotic agent
CPT/HCPCS: 36415; 71045; 80048; 80053; 85025; 87070; 87205; 87804; 94640; 96361; 96365; 96375; 99285; A9270; J0456; J0696; J1650; J1885; J2930; J7030; J7050; J7613-GY; J7620-GY

== ENCOUNTER 2021-10-23 14:53 | Observation (INO) | payer BC, OTHER ==
[2021-10-23] MEDS ORDERED: Albuterol/Ipratropium 3.0-0.5 MG/3 ML Neb Soln NEB ONE (15:12)
[2021-10-23] MEDS ORDERED: Magnesium Sulfate/Water 2 GM in Premix Bag 1 BAG IV ONE (15:26)
[2021-10-23] MEDS ORDERED: Ketorolac 30 MG/ML SDV IVPUSH ONE (15:43)
[2021-10-23 15:55] LABS: ANION GAP 16.8 mEq/L (7-13); CHLORIDE,CL 103 mmol/L (98-107); SODIUM,NA 140 mmol/L (136-145)
[2021-10-23] MEDS ORDERED: Ketorolac 30 MG/ML SDV IVPUSH PRN (17:35)
[2021-10-23] MEDS ORDERED: Ibuprofen 400 MG Tab PO PRN (17:35)
[2021-10-23] MEDS ORDERED: Acetaminophen 325 MG Tab PO PRN ×2 (17:35→19:33)
[2021-10-23] MEDS ORDERED: Zolpidem 5 MG Tab PO PRN (17:35)
[2021-10-23] MEDS ORDERED: Docusate Sodium 100 MG Cap PO PRN (17:35)
[2021-10-23] MEDS ORDERED: Ondansetron 4 MG/2 ML SDV IVPUSH PRN (17:35)
[2021-10-23] MEDS ORDERED: Promethazine 25 MG/ML SDV IM PRN (17:35)
[2021-10-23] MEDS ORDERED: Magnesium Hydroxide 400 MG/5 ML Susp 30 ML Cup PO PRN (17:35)
[2021-10-23] MEDS ORDERED: Polyethylene Glycol 3350 Powder 17 GM Packet PO PRN (17:35)
[2021-10-23] MEDS ORDERED: Acetaminophen/oxyCODONE 325-5 MG Tab PO PRN (17:35)
[2021-10-23] MEDS ORDERED: Bisacodyl 5 MG Tab PO PRN (17:35)
[2021-10-23] MEDS ORDERED: Sodium Chloride 0.9% 10 ML Syringe FLUSH PRN (17:52)
[2021-10-23] MEDS ORDERED: methylPREDNISolone Sodium Succinate 125 MG/2 ML SDV IVPUSH ONE (19:28)
[2021-10-23] MEDS ORDERED: Oxymetazoline 0.05% Nasal Spray 30 ML Bottle NAS PRN (19:30)
[2021-10-23] MEDS ORDERED: Codeine/guaiFENesin 10-100 MG/5 ML Syrup 5 ML Cup PO PRN (19:31)
[2021-10-23] MEDS ORDERED: Acetaminophen/Butalbital/Caffeine 325-50-40 MG Tab PO PRN (19:32)
[2021-10-23] MEDS ORDERED: diphenhydrAMINE 50 MG/ML SDV IVPUSH ONE (19:32)
[2021-10-23] MEDS ORDERED: Albuterol/Ipratropium 3.0-0.5 MG/3 ML Neb Soln NEB PRN (19:33)
[2021-10-23] MEDS: Formoterol/Mometasone 200-5 MCG 8.8 GM Inhaler IH SCH (20:28)
[2021-10-23] MEDS: Phenazopyridine 95 MG Tab PO SCH (20:32)
[2021-10-23] MEDS: Codeine/guaiFENesin 10-100 MG/5 ML Syrup 5 ML Cup PO SCH (20:33)
[2021-10-23] MEDS: Benzonatate 100 MG Cap PO PRN (20:33)
[2021-10-23] MEDS ORDERED: Montelukast 10 MG Tab PO SCH (21:00)
[2021-10-23] MEDS ORDERED: Famotidine 20 MG/2 ML SDV IVPUSH ONE (22:37)
[2021-10-24] MEDS: Benzonatate 100 MG Cap PO PRN (05:04)
[2021-10-24] MEDS ORDERED: methylPREDNISolone Sodium Succinate 125 MG/2 ML SDV IVPUSH SCH (06:00)
[2021-10-24 06:17] LABS: ANION GAP 15.4 mEq/L (7-13); CHLORIDE,CL 103 mmol/L (98-107); SODIUM,NA 139 mmol/L (136-145)
[2021-10-24] MEDS: Albuterol/Ipratropium 3.0-0.5 MG/3 ML Neb Soln NEB PRN ×2 (08:57→14:36)
[2021-10-24] MEDS ORDERED: Famotidine 20 MG/2 ML SDV IVPUSH SCH (09:00)
[2021-10-24] MEDS ORDERED: Azithromycin 250 MG Tab PO SCH (09:00)
[2021-10-24] MEDS ORDERED: Cholecalciferol (Vitamin D3) 25 MCG Tab PO SCH (09:00)
[2021-10-24] MEDS: Phenazopyridine 95 MG Tab PO SCH ×2 (09:05→13:22)
[2021-10-24] MEDS: Codeine/guaiFENesin 10-100 MG/5 ML Syrup 5 ML Cup PO SCH ×3 (09:06→14:17)
[2021-10-24] MEDS: Formoterol/Mometasone 200-5 MCG 8.8 GM Inhaler IH SCH (09:13)
[2021-10-24] MEDS ORDERED: methylPREDNISolone Sodium Succinate 125 MG/2 ML SDV IVPUSH ONE (14:30)
[2021-10-24] MEDS ORDERED: diphenhydrAMINE 50 MG Cap PO SCH (21:00)
[2021-10-24] MEDS ORDERED: Fluticasone NASAL Spray 16 GM Bottle NASBOTH SCH (21:00)
[2021-10-24] MEDS ORDERED: Albuterol/Ipratropium 3.0-0.5 MG/3 ML Neb Soln NEB SCH (21:00)
== END 2021-10-24 15:45 | disposition home or self-care (01) ==
LOC: DL.ED 14:53 → DL.MS 17:21 → INTOOBSV 17:21
PROVIDERS: ADMIT Internal Medicine; ATTEND Internal Medicine
DX: J45.51 Severe persistent asthma with (acute) exacerbation (principal); J06.9 Acute upper respiratory infection, unspecified; J02.9 Acute pharyngitis, unspecified; N20.0 Calculus of kidney; N39.0 Urinary tract infection, site not specified; E55.9 Vitamin D deficiency, unspecified; E66.3 Overweight; H54.7 Unspecified visual loss; E87.2 Acidosis; Z88.2 Allergy status to sulfonamides; Z88.5 Allergy status to narcotic agent; Z68.39 Body mass index [BMI] 39.0-39.9, adult; Z79.51 Long term (current) use of inhaled steroids; Z79.52 Long term (current) use of systemic steroids; Z79.899 Other long term (current) drug therapy; Z86.16 Personal history of COVID-19
CPT/HCPCS: 36415; 74176; 80048; 80053; 81001; 83605; 83735; 83880; 84484; 85025; 85379; 86140; 87040; 87086; 93005; 94640; 96365; 96375; 99285; A9270; J1200; J1885; J2405; J2930; J3475; J3490; 96366; 96376; G0378; J7620-GY

== ENCOUNTER 2022-02-15 16:21 | Emergency (ER) | payer BC, OTHER ==
[2022-02-15] MEDS ORDERED: methylPREDNISolone Sodium Succinate 125 MG/2 ML SDV IVPUSH ONE (16:56)
[2022-02-15 17:22] LABS: ANION GAP 14.5 mEq/L (7-13)
== END 2022-02-15 18:02 | disposition home or self-care (01) ==
LOC: DL.ED 16:21
DX: U07.1 COVID-19 (principal); Z86.16 Personal history of COVID-19; Z88.1 Allergy status to other antibiotic agents
CPT/HCPCS: 36415; 71046; 80053; 83605; 85025; 87040; 96374; 99284; 99285-25; J2930; U0002

== ENCOUNTER 2025-03-19 13:44 | Emergency (ER) | payer BC, OTHER ==
[2025-03-19] MEDS ORDERED: Sodium Chloride 0.9% 10 ML Syringe FLUSH PRN (14:44)
[2025-03-19 14:59] LABS: EOSINOPHILS PERCENT AUTO 3.1 % (1.0-3.0); LYMPHOCYTES PERCENT AUTO 20.3 % (20.5-50.1); MONOCYTES PERCENT AUTO 5.2 % (2-8); NEUTROPHILS PERCENT AUTO 70.8 % (42.2-75.2); PLATELET COUNT,PLT 305 10^3/uL (150-450); RED BLOOD CELL COUNT 4.57 10^6/uL (4.2-5.4); WHITE BLOOD CELL COUNT,WBC 10.4 10^3/uL (5.0-10.0)
[2025-03-19 15:00] LABS: BASOPHILS PERCENT AUTO 0.3 % (0.0-1.0)
[2025-03-19 15:16] LABS: BLOOD UREA NITROGEN,BUN 9 mg/dL (7-18); CARBON DIOXIDE,CO2 30 mmol/L (21-32); CHLORIDE,CL 103 mmol/L (98-107); CREATININE 0.57 mg/dL (0.55-1.02); EST CRCL DRUG DOSING (CG) 122.48 mL/min; GLUCOSE RANDOM 95 mg/dL (70-99); POTASSIUM,K 3.7 mmol/L (3.5-5.1); SODIUM,NA 139 mmol/L (136-145)
[2025-03-19 15:17] LABS: ESTIMATED GFR 115 mL/min (>=60)
[2025-03-19 15:27] LABS: EOSINOPHILS PERCENT MAN 1 % (1-3); LYMPHOCYTES PERCENT MAN 24 % (20-50); MONOCYTES PERCENT MAN 6 % (2-8); SEG NEUTROPHILS PERCENT MAN 69 % (42-75)
== END 2025-03-19 16:40 | disposition home or self-care (01) ==
LOC: DL.ED 13:44
DX: R07.9 Chest pain, unspecified (principal); Z88.8 Allergy status to other drugs, medicaments and biological substances; Z79.899 Other long term (current) drug therapy; Z86.16 Personal history of COVID-19; Z90.49 Acquired absence of other specified parts of digestive tract
CPT/HCPCS: 36415; 71046; 80048; 84484; 85025; 99285